=== PATIENT | female | born 1975 | race Hispanic/Latino ===

== ENCOUNTER → 2017-12-12 | Outpatient (CLI) | payer OTHER ==
[~2017-12-12] MED LIST: CETI1TAB PO; DIPH50CA35 PO; GUAIFDM PO; LABE100T PO; LEVO500T2 PO; MONT10TA24 PO; PRED20TA3 PO; TRAM50TA2 PO
[2017-12-12 16:47] LABS: EOSINOPHILS % (AUTO) 2.6 % (0.0-8.0); HEMATOCRIT 40.8 % (36-48); MEAN CORPUSCULAR HEMOGLOBIN 31.1 pg (27.0-33.0); MEAN CORPUSCULAR HGB CONC 34.4 g/dL (32.0-36.0); MEAN CORPUSCULAR VOLUME 90.5 fL (79-99); MONOCYTES % (AUTO) 8.2 % (3.0-13.0); NEUTROPHILS % (AUTO) 67.2 % (40.0-77.0); PLATELET COUNT (AUTO) 315 K/uL (130-400); RED BLOOD CELL COUNT(AUTO) 4.51 MIL/uL (4.00-5.50); RED CELL DISTRIBUTION WIDTH 12.9 % (11.0-15.5); WHITE BLOOD COUNT (AUTO) 7.3 K/uL (4.8-10.8)
[2017-12-12 16:59] LABS: ALBUMIN 3.6 g/dL (3.5-5.0); BILIRUBIN,TOTAL 0.3 mg/dL (0.2-1.0); CREATININE 1.4 mg/dL (0.5-1.5); TOTAL PROTEIN, SERUM 7.1 g/dL (6.0-8.3)
== END ==
LOC: LAB 15:54
PROVIDERS: ATTEND Internal Medicine Gastroenterology
DX: M25.512 Pain in left shoulder (principal); R07.9 Chest pain, unspecified; M25.552 Pain in left hip; R10.2 Pelvic and perineal pain
CPT/HCPCS: 36415; 80053; 82150; 83690; 85025

== ENCOUNTER → 2017-12-21 | Outpatient (CLI) | payer OTHER ==
[~2017-12-21] MED LIST changes: +IOPAMIDOL-370 75 ML VIAL IV ONE; -LABE100T PO; +LABE100T5 PO
== END | disposition home or self-care (01) ==
LOC: RAH 10:49
PROVIDERS: ATTEND Internal Medicine Gastroenterology
DX: K80.20 Calculus of gallbladder without cholecystitis without obstruction (principal); K85.10 Biliary acute pancreatitis without necrosis or infection; K86.2 Cyst of pancreas
CPT/HCPCS: 74178; Q9967

== ENCOUNTER 2018-01-30 07:36 | Observation (INO) | payer OTHER ==
[~2018-01-30] VITALS: Ht 162.6 cm; Wt 87.4 kg
[2018-01-30] VITALS (12 sets, daily range): BP systolic 112–146; BP diastolic 68–88
[~2018-01-30 07:36] MED LIST changes: -DIPH50CA35 PO; -IOPAMIDOL-370 75 ML VIAL IV ONE; -LABE100T5 PO; -LEVO500T2 PO; -MONT10TA24 PO; -PRED20TA3 PO; +SODIUM CHLORIDE 0.9% 1000ML 1,000 ML IV ONE; -TRAM50TA2 PO
[2018-01-30] MEDS ORDERED: LABE100T5 PO (08:17)
[2018-01-30] MEDS ORDERED: MONT10TA24 PO (08:17)
[2018-01-30] MEDS ORDERED: PROPOFOL 10 MG/ML 20ML VIAL IV ONE ×4 (12:09→12:37)
[2018-01-30] MEDS ORDERED: MIDAZOLAM HCL 1 MG/ML 2ML VIAL ONE (12:09)
[2018-01-30] MEDS ORDERED: FENTANYL CITRATE PF 50 MCG/1 ML 2ML VIAL ONE (12:09)
[2018-01-30] MEDS ORDERED: ZOSYN 3.375GM+NS 50ML 50 ML IV ONE ×2 (12:40→22:13)
[2018-01-30] MEDS ORDERED: LACTULOSE 20 GM/30 ML UDCUP PO PRN (13:15)
[2018-01-30] MEDS ORDERED: ACETAMINOPHEN 325 MG TAB PO PRN (13:15)
[2018-01-30] MEDS ORDERED: POTASSIUM CHLORIDE 10% ELIXIR 20 MEQ/15 ML UDCUP PO PRN (13:15)
[2018-01-30] MEDS ORDERED: MORPHINE SULFATE 2 MG/ML 1ML SYG IV PRN (13:15)
[2018-01-30] MEDS ORDERED: GUAIFENESIN-DM 200/20 MG 10 ML PO PRN (13:15)
[2018-01-30] MEDS ORDERED: ACETAMINOPHEN-CODEINE 300/30MG TAB PO PRN (13:15)
[2018-01-30] MEDS ORDERED: MAG HYDROX/AL HYDROX/SIMETH ES 30 ML SUSP UDCUP PO PRN (13:15)
[2018-01-30] MEDS ORDERED: POTASSIUM CHLORIDE 20 MEQ ERTAB PO PRN (13:15)
[2018-01-30] MEDS ORDERED: HYDRALAZINE HCL 20 MG/ML VIAL IV PRN (13:15)
[2018-01-30] MEDS ORDERED: NITROGLYCERIN 0.4 MG SL TAB SL PRN (13:15)
[2018-01-30] MEDS: SODIUM CHLORIDE 0.9% 1000ML 1,000 ML IV SCH (15:30)
[2018-01-30] MEDS ORDERED: ONDANSETRON HCL MDV 20ML 2 MG/ML VIAL IVP ONE (20:00)
[2018-01-30] MEDS: FAMOTIDINE/PF 20 MG/2 ML VIAL IV SCH (21:54)
[2018-01-30] MEDS ORDERED: HYDROMORPHONE 1 MG/1 ML AMP IVP PRN (22:15)
[2018-01-30] MEDS: ZOSYN 3.375GM+NS 50ML 50 ML IV SCH (22:33)
[2018-01-30] MEDS ORDERED: ACETAMINOPHEN 650 MG SUPPOSITORY RC ONE (22:41)
[2018-01-30] MEDS ORDERED: ACETAMINOPHEN 650 MG SUPPOSITORY RC PRN (22:45)
[2018-01-31] MEDS ORDERED: METRONIDAZOLE 500MG/100ML BAG 100 ML IV SCH (02:00)
[2018-01-31] MEDS: SODIUM CHLORIDE 0.9% 1000ML 1,000 ML IV SCH ×2 (02:41→11:30)
[2018-01-31] MEDS: METRONIDAZOLE 500MG/100ML BAG 100 ML IV SCH ×4 (02:41→21:27)
[2018-01-31 03:38] VITALS: BP 117/56
[2018-01-31 03:58] LABS: HEMATOCRIT 41.2 % (36-48); MEAN CORPUSCULAR HEMOGLOBIN 30.1 pg (27.0-33.0); MEAN CORPUSCULAR VOLUME 88.4 fL (79-99); PLATELET COUNT (AUTO) 325 K/uL (130-400); RED BLOOD CELL COUNT(AUTO) 4.66 MIL/uL (4.00-5.50); RED CELL DISTRIBUTION WIDTH 13.8 % (11.0-15.5); WHITE BLOOD COUNT (AUTO) 23.7 K/uL (4.8-10.8)
[2018-01-31 04:06] LABS: ALBUMIN 3.4 g/dL (3.5-5.0); BILIRUBIN,TOTAL 0.9 mg/dL (0.2-1.0); CREATININE 1.3 mg/dL (0.5-1.5); POTASSIUM 3.9 mmol/L (3.5-5.1)
[2018-01-31] MEDS: ZOSYN 3.375GM+NS 50ML 50 ML IV SCH ×3 (07:15→22:38)
[2018-01-31] MEDS: FAMOTIDINE/PF 20 MG/2 ML VIAL IV SCH ×2 (07:52→20:32)
[2018-01-31] MEDS: ACETAMINOPHEN 325 MG TAB PO PRN (07:52)
[2018-01-31 08:00] VITALS: BP 131/81
[2018-01-31] MEDS: SIMETHICONE 80 MG TAB.CHEW PO SCH ×4 (09:00→20:32)
[2018-01-31 11:29] VITALS: BP 135/78
[2018-01-31] MEDS: ONDANSETRON HCL MDV 20ML 2 MG/ML VIAL IV PRN (16:18)
[2018-01-31 16:33] VITALS: BP 136/85
[2018-01-31 19:40] VITALS: BP 127/75
[2018-01-31] MEDS: MONTELUKAST SODIUM 10 MG TAB PO SCH (20:32)
[2018-01-31] MEDS: LABETALOL HCL 100 MG TABLET PO SCH (20:33)
[2018-02-01] VITALS (7 sets, daily range): BP systolic 106–142; BP diastolic 62–79
[2018-02-01] MEDS: ACETAMINOPHEN 325 MG TAB PO PRN (00:52)
[2018-02-01 04:26] LABS: HEMATOCRIT 36.4 % (36-48); MEAN CORPUSCULAR HGB CONC 36.4 g/dL (32.0-36.0); PLATELET COUNT (AUTO) 274 K/uL (130-400); RED BLOOD CELL COUNT(AUTO) 4.14 MIL/uL (4.00-5.50); RED CELL DISTRIBUTION WIDTH 13.6 % (11.0-15.5); WHITE BLOOD COUNT (AUTO) 9.4 K/uL (4.8-10.8)
[2018-02-01 04:39] LABS: CREATININE 1.2 mg/dL (0.5-1.5); POTASSIUM 3.2 mmol/L (3.5-5.1)
[2018-02-01] MEDS: METRONIDAZOLE 500MG/100ML BAG 100 ML IV SCH ×3 (05:25→20:34)
[2018-02-01] MEDS: ZOSYN 3.375GM+NS 50ML 50 ML IV SCH ×3 (05:54→23:02)
[2018-02-01] MEDS ORDERED: TRAM50TA2 PO (09:09)
[2018-02-01] MEDS: SIMETHICONE 80 MG TAB.CHEW PO SCH ×4 (09:43→23:01)
[2018-02-01] MEDS: FAMOTIDINE/PF 20 MG/2 ML VIAL IV SCH ×2 (09:43→20:36)
[2018-02-01] MEDS: SODIUM CHLORIDE 0.9% 1000ML 1,000 ML IV SCH (15:00)
[2018-02-01] MEDS: ONDANSETRON HCL MDV 20ML 2 MG/ML VIAL IV PRN (20:36)
[2018-02-01] MEDS: LABETALOL HCL 100 MG TABLET PO SCH (23:00)
[2018-02-01] MEDS: MONTELUKAST SODIUM 10 MG TAB PO SCH (23:01)
[2018-02-02 00:05] VITALS: BP 110/71
[2018-02-02] MEDS: SODIUM CHLORIDE 0.9% 1000ML 1,000 ML IV SCH ×2 (02:20→15:47)
[2018-02-02] MEDS: POTASSIUM CHLORIDE 20MEQ/100ML 100 ML IV PRN ×2 (02:22→13:14)
[2018-02-02] MEDS: LIDOCAINE HCL-MPF 1% 2ML VIAL IVP PRN ×2 (02:22→13:15)
[2018-02-02 04:05] VITALS: BP 117/78
[2018-02-02 05:21] LABS: HEMATOCRIT 34.6 % (36-48); MEAN CORPUSCULAR HEMOGLOBIN 30.5 pg (27.0-33.0); MEAN CORPUSCULAR HGB CONC 34.4 g/dL (32.0-36.0); MEAN CORPUSCULAR VOLUME 88.6 fL (79-99); PLATELET COUNT (AUTO) 292 K/uL (130-400); RED BLOOD CELL COUNT(AUTO) 3.91 MIL/uL (4.00-5.50); RED CELL DISTRIBUTION WIDTH 13.6 % (11.0-15.5); WHITE BLOOD COUNT (AUTO) 6.2 K/uL (4.8-10.8)
[2018-02-02] MEDS: METRONIDAZOLE 500MG/100ML BAG 100 ML IV SCH ×2 (07:56→15:47)
[2018-02-02 08:00] VITALS: BP 120/76
[2018-02-02] MEDS: SIMETHICONE 80 MG TAB.CHEW PO SCH ×2 (09:04→13:14)
[2018-02-02] MEDS: FAMOTIDINE/PF 20 MG/2 ML VIAL IV SCH (09:04)
[2018-02-02] MEDS: ZOSYN 3.375GM+NS 50ML 50 ML IV SCH (09:05)
[2018-02-02 11:36] VITALS: BP 131/78
[2018-02-02 15:54] VITALS: BP 127/86
== END 2018-02-02 17:55 | disposition home or self-care (01) ==
LOC: ENDO 07:36 → DAH 07:36 → DAHIP 07:37 → ENDO 07:37 → 3CH 14:19
PROVIDERS: ADMIT Internal Medicine; ATTEND Internal Medicine
DX: K86.3 Pseudocyst of pancreas (principal); I10 Essential (primary) hypertension; K80.10 Calculus of gallbladder with chronic cholecystitis without obstruction; Z79.899 Other long term (current) drug therapy
CPT/HCPCS: 36415 ×4; 43240; 74176; 80048; 80053; 84703; 85027 ×3; 87040 ×2; 96365; 96366 ×4; 96367; 96368; 96375 ×2; 96376 ×3; A4510; A4606; C1877; G0378 ×82; J1170; J2250; J2543 ×9; J2704 ×4; J3010; J3480 ×2; J3490 ×16; J7030 ×2; 43231

== ENCOUNTER → 2018-02-11 | Outpatient (CLI) | payer OTHER ==
[~2018-02-11] MED LIST changes: -CETI1TAB PO; +DIPH50CA35 PO; -GUAIFDM PO; +IOPAMIDOL-370 75 ML VIAL IV ONE; +LABE100T5 PO; +LEVO500T2 PO; +MONT10TA24 PO; +PRED20TA3 PO; -SODIUM CHLORIDE 0.9% 1000ML 1,000 ML IV ONE; +TRAM50TA2 PO
== END | disposition home or self-care (01) ==
LOC: RAH 08:40
PROVIDERS: ATTEND Internal Medicine
DX: K80.20 Calculus of gallbladder without cholecystitis without obstruction (principal); K86.2 Cyst of pancreas
CPT/HCPCS: 74178; Q9967

== ENCOUNTER 2018-02-12 21:34 | Emergency (ER) | payer OTHER ==
[~2018-02-12 21:34] MED LIST changes: -DIPH50CA35 PO; -IOPAMIDOL-370 75 ML VIAL IV ONE; -LEVO500T2 PO; -PRED20TA3 PO
[2018-02-12] MEDS ORDERED: FAMOTIDINE 20MG TAB 20 MG TAB ONE (22:52)
[2018-02-12] MEDS ORDERED: DiphenhydrAMINE HCL 50 MG/ML VIAL ONE (22:53)
[2018-02-12] MEDS ORDERED: PREDNISONE 20 MG TABLET ONE (22:53)
== END 2018-02-12 23:31 | disposition home or self-care (01) ==
LOC: EDH 21:34
DX: T78.49XA Other allergy, initial encounter (principal); X58.XXXA Exposure to other specified factors, initial encounter
CPT/HCPCS: 96372; 99283; J1200

== ENCOUNTER 2018-02-20 11:57 | Inpatient (IN) | payer OTHER ==
[~2018-02-20] VITALS: Ht 162.6 cm; Wt 78.1 kg
[~2018-02-20 11:57] MED LIST changes: -DIPH50CA35 PO; -IOPAMIDOL-370 75 ML VIAL IV ONE; -LEVO500T2 PO; -PRED20TA3 PO
[2018-02-20 12:46] LABS: BASOPHILS % (AUTO) 0.2 % (0.0-5.0); HEMATOCRIT 33.6 % (36-48); LYMPHOCYTES % (AUTO) 6.4 % (21.0-51.0); MEAN CORPUSCULAR HEMOGLOBIN 29.4 pg (27.0-33.0); MEAN CORPUSCULAR HGB CONC 32.9 g/dL (32.0-36.0); MEAN CORPUSCULAR VOLUME 89.2 fL (79-99); MONOCYTES % (AUTO) 4.2 % (3.0-13.0); NEUTROPHILS % (AUTO) 89.2 % (40.0-77.0); NUCLEATED RED BLOOD CELLS 0.1 % (0.0-0.19); PLATELET COUNT (AUTO) 569 K/uL (130-400); RED BLOOD CELL COUNT(AUTO) 3.77 MIL/uL (4.00-5.50); WHITE BLOOD COUNT (AUTO) 7.2 K/uL (4.8-10.8)
[2018-02-20 12:59] LABS: CREATININE 1.1 mg/dL (0.5-1.5); POTASSIUM 4.1 mmol/L (3.5-5.1)
[2018-02-20 13:04] LABS: ALBUMIN 2.3 g/dL (3.5-5.0); BILIRUBIN,TOTAL 0.5 mg/dL (0.2-1.0); TOTAL PROTEIN, SERUM 7.3 g/dL (6.0-8.3)
[2018-02-20] MEDS ORDERED: SODIUM CHLORIDE 0.9% 1000ML 1,000 ML IV ONE (14:33)
[2018-02-20 18:19] VITALS: BP 113/64
[2018-02-20] MEDS ORDERED: CLONIDINE HCL 0.1 MG TABLET PO PRN (18:30)
[2018-02-20] MEDS ORDERED: ONDANSETRON HCL 4 MG/2 ML VIAL IVP PRN (18:30)
[2018-02-20] MEDS ORDERED: ACETAMINOPHEN 325 MG TAB PO PRN ×2 (18:30)
[2018-02-20] MEDS: SODIUM CHLORIDE 0.9% 1000ML 1,000 ML IV SCH (18:38)
[2018-02-20] MEDS ORDERED: PRED20TA3 PO (18:51)
[2018-02-20] MEDS ORDERED: LEVO500T2 PO (18:51)
[2018-02-20] MEDS ORDERED: DIPH50CA35 PO (18:51)
[2018-02-20 19:00] VITALS: BP 105/65
[2018-02-20] MEDS ORDERED: DiphenhydrAMINE HCL 50 MG/ML VIAL IV PRN (21:45)
[2018-02-20 23:39] VITALS: BP 113/67
[2018-02-21] MEDS: SODIUM CHLORIDE 0.9% 1000ML 1,000 ML IV SCH ×3 (02:53→23:04)
[2018-02-21 04:00] VITALS: BP 96/64
[2018-02-21 05:13] LABS: HEMATOCRIT 29.5 % (36-48); MEAN CORPUSCULAR HEMOGLOBIN 30.3 pg (27.0-33.0); MEAN CORPUSCULAR HGB CONC 34.4 g/dL (32.0-36.0); MEAN CORPUSCULAR VOLUME 87.9 fL (79-99); PLATELET COUNT (AUTO) 478 K/uL (130-400); RED BLOOD CELL COUNT(AUTO) 3.36 MIL/uL (4.00-5.50); RED CELL DISTRIBUTION WIDTH 14.5 % (11.0-15.5); WHITE BLOOD COUNT (AUTO) 8.8 K/uL (4.8-10.8)
[2018-02-21 05:21] LABS: CREATININE 0.8 mg/dL (0.5-1.5)
[2018-02-21 05:35] LABS: INR 1.04 (0.85-1.15); PROTHROMBIN TIME 10.9 SEC (9.6-11.6)
[2018-02-21 07:55] VITALS: BP 99/58
[2018-02-21] MEDS ORDERED: PANTOPRAZOLE SODIUM 40 MG TABLET.DR PO SCH (09:00)
[2018-02-21] MEDS ORDERED: GUAIFENESIN-DM 200/20 MG 10 ML PO PRN (10:30)
[2018-02-21] MEDS ORDERED: HYDRALAZINE HCL 20 MG/ML VIAL IV PRN (10:30)
[2018-02-21] MEDS ORDERED: LACTULOSE 20 GM/30 ML UDCUP PO PRN (10:30)
[2018-02-21] MEDS ORDERED: ONDANSETRON HCL 4 MG/2 ML VIAL IV PRN (10:30)
[2018-02-21] MEDS ORDERED: MAG HYDROX/AL HYDROX/SIMETH ES 30 ML SUSP UDCUP PO PRN (10:30)
[2018-02-21] MEDS ORDERED: NITROGLYCERIN 0.4 MG SL TAB SL PRN (10:30)
[2018-02-21] MEDS ORDERED: ACETAMINOPHEN 325 MG TAB PO PRN ×2 (10:30)
[2018-02-21] MEDS: LEVOFLOXACIN 750 MG/D5W 150 ML 150 ML IV SCH (11:47)
[2018-02-21 12:00] VITALS: BP 103/68
[2018-02-21 16:00] VITALS: BP 111/63
[2018-02-21 19:37] VITALS: BP 120/63
[2018-02-21] MEDS: FAMOTIDINE/PF 20 MG/2 ML VIAL IV SCH (21:43)
[2018-02-21 23:04] VITALS: BP 107/71
[2018-02-22] MEDS: MEPERIDINE-PF 25 MG/ML SYG IV PRN ×2 (03:12→18:38)
[2018-02-22 03:28] VITALS: BP 107/59
[2018-02-22 04:38] LABS: HEMATOCRIT 28.8 % (36-48); MEAN CORPUSCULAR HEMOGLOBIN 31.4 pg (27.0-33.0); MEAN CORPUSCULAR HGB CONC 35.9 g/dL (32.0-36.0); MEAN CORPUSCULAR VOLUME 87.5 fL (79-99); PLATELET COUNT (AUTO) 446 K/uL (130-400); RED BLOOD CELL COUNT(AUTO) 3.29 MIL/uL (4.00-5.50); RED CELL DISTRIBUTION WIDTH 14.7 % (11.0-15.5); WHITE BLOOD COUNT (AUTO) 12.3 K/uL (4.8-10.8)
[2018-02-22 05:13] LABS: ALBUMIN 1.7 g/dL (3.5-5.0); BILIRUBIN,TOTAL 0.2 mg/dL (0.2-1.0); CREATININE 0.9 mg/dL (0.5-1.5); POTASSIUM 3.6 mmol/L (3.5-5.1); TOTAL PROTEIN, SERUM 5.4 g/dL (6.0-8.3)
[2018-02-22 06:02] LABS: BAND NEUTROPHILS % (MANUAL) 26 % (0-2); LYMPHOCYTES % (MANUAL) 10 % (22-44); MAN.DIFF COMMENT-IMPRESSION MANUAL DIFFERENTIAL; METAMYELOCYTES % 3 % (0-0); MONOCYTES % (MANUAL) 18 % (2-9); REACTIVE LYMPHOCYTES 2 % (0-0); SEGMENTED NEUTROPHILS % 41 % (40-70)
[2018-02-22 06:03] LABS: PLATELET MORPHOLOGY COMMENT SLIGHT INCREASED
[2018-02-22] MEDS: SODIUM CHLORIDE 0.9% 1000ML 1,000 ML IV SCH ×2 (06:30→08:25)
[2018-02-22 07:00] VITALS: BP 100/65
[2018-02-22] MEDS: LEVOFLOXACIN 750 MG/D5W 150 ML 150 ML IV SCH (08:25)
[2018-02-22] MEDS: FAMOTIDINE/PF 20 MG/2 ML VIAL IV SCH ×2 (08:25→20:21)
[2018-02-22] MEDS ORDERED: POTASSIUM CHLORIDE 20MEQ/100ML 100 ML IV PRN (10:00)
[2018-02-22] MEDS ORDERED: POTASSIUM CHLORIDE 10% ELIXIR 20 MEQ/15 ML UDCUP PO PRN (10:00)
[2018-02-22] MEDS ORDERED: LIDOCAINE HCL-MPF 1% 2ML VIAL IVP PRN (10:00)
[2018-02-22 11:00] VITALS: BP 109/61
[2018-02-22 16:00] VITALS: BP 101/57
[2018-02-22] MEDS ORDERED: SODIUM CHLORIDE 0.9% 250 ML IV ONE (16:03)
[2018-02-22 20:03] VITALS: BP 108/68
[2018-02-22] MEDS ORDERED: KETOROLAC TROMETHAMINE 30MG/ML ONE (20:12)
[2018-02-22] MEDS ORDERED: KETOROLAC TROMETHAMINE 30MG/ML IM PRN (20:15)
[2018-02-22] MEDS ORDERED: LABETALOL HCL 100 MG TABLET PO SCH (21:00)
[2018-02-23 00:04] VITALS: BP 95/56
[2018-02-23 03:00] VITALS: BP 101/62
[2018-02-23 08:00] VITALS: BP 95/58
[2018-02-23] MEDS: FAMOTIDINE/PF 20 MG/2 ML VIAL IV SCH (08:39)
[2018-02-23] MEDS: POTASSIUM CHLORIDE 20 MEQ ERTAB PO PRN ×2 (10:16→13:23)
[2018-02-23] MEDS: LEVOFLOXACIN 750 MG/D5W 150 ML 150 ML IV SCH (11:38)
== END 2018-02-23 18:15 | disposition home or self-care (01) | DRG 282 ==
LOC: EDH 11:57 → EDHIP 13:46 → 4BH 17:52 → 3BH 02-23 02:52
PROVIDERS: ADMIT Family Medicine; ATTEND Family Medicine
DX: K85.90 Acute pancreatitis without necrosis or infection, unspecified (principal); K74.60 Unspecified cirrhosis of liver; E87.1 Hypo-osmolality and hyponatremia; D64.9 Anemia, unspecified; K80.20 Calculus of gallbladder without cholecystitis without obstruction
CPT/HCPCS: 36415; 74178; 80048; 80053; 82150; 83605; 83690; 85025; 85027; 85610; 87040; J1885; J1956; J2175; J2405; J3480; J3490; J7030; Q9967

== ENCOUNTER → 2018-02-20 | Outpatient (CLI) | payer OTHER ==
[~2018-02-20] MED LIST changes: +DIPH50CA35 PO; +IOPAMIDOL-370 75 ML VIAL IV ONE; +LEVO500T2 PO; +PRED20TA3 PO
== END | disposition home or self-care (01) ==
LOC: RAH 10:05
PROVIDERS: ATTEND Internal Medicine
DX: K80.20 Calculus of gallbladder without cholecystitis without obstruction (principal); I70.90 Unspecified atherosclerosis; K86.2 Cyst of pancreas
CPT/HCPCS: 74178; Q9967

== ENCOUNTER 2018-05-26 22:03 | Inpatient (IN) | payer OTHER ==
[~2018-05-26] VITALS: Ht 167.6 cm; Wt 78.3 kg
[~2018-05-26 22:03] MED LIST changes: +DUCOSATE; -LABE100T5 PO; -MONT10TA24 PO; -TRAM50TA2 PO; +TYLENOL
[2018-05-26] MEDS ORDERED: ACETAMINOPHEN EXTRA STRENGTH 500 MG TABLET ONE (22:15)
[2018-05-26] MEDS ORDERED: SODIUM CHLORIDE 0.9% 1000ML 2,000 ML IV ONE (22:15)
[2018-05-26] MEDS ORDERED: IBUPROFEN 400 MG TABLET ONE (22:17)
[2018-05-26] MEDS ORDERED: IBUPROFEN 200 MG TAB ONE (22:18)
[2018-05-26] MEDS ORDERED: ONDANSETRON HCL 4 MG/2 ML VIAL ONE (22:22)
[2018-05-26 22:39] LABS: CARBON DIOXIDE 27 mmol/L (21-32); CHLORIDE 100 mmol/L (101-111); CREATININE 1.1 mg/dL (0.5-1.5); GLOMERULAR FILTR. RATE CALC 58 mL/min (>60); GLUCOSE,RANDOM 122 mg/dL (70-105); POTASSIUM 3.3 mmol/L (3.5-5.1); SODIUM SERUM 136 mmol/L (136-145); UREA NITROGEN, BLOOD 11 mg/dL (7-18)
[2018-05-26 22:42] LABS: BASOPHILS % (AUTO) 0.4 % (0.0-5.0); EOSINOPHILS % (AUTO) 0.5 % (0.0-8.0); HEMATOCRIT 30.5 % (36-48); LYMPHOCYTES % (AUTO) 10.7 % (21.0-51.0); MEAN CORPUSCULAR HEMOGLOBIN 27.5 pg (27.0-33.0); MEAN CORPUSCULAR VOLUME 83.3 fL (79-99); MONOCYTES % (AUTO) 14.4 % (3.0-13.0); PLATELET COUNT (AUTO) 583 K/uL (130-400); RED BLOOD CELL COUNT(AUTO) 3.66 MIL/uL (4.00-5.50); RED CELL DISTRIBUTION WIDTH 21.5 % (11.0-15.5); WHITE BLOOD COUNT (AUTO) 13.2 K/uL (4.8-10.8)
[2018-05-26 22:43] LABS: APPEARANCE,URINE Cloudy (CLEAR); BILIRUBIN,URINE Negative (NEGATIVE); COLOR,URINE Dark Yellow (YELLOW); GLUCOSE, URINE (UA) Negative (NEGATIVE); KETONES,URINE Trace mg/dL (NEGATIVE); LEUKOCYTE ESTERASE ,URINE Trace (NEGATIVE); NITRATE,URINE Negative (NEGATIVE); OCCULT BLOOD,URINE Negative (NEGATIVE); PH,URINE 5.5 (5.0-8.0); PROTEIN,URINE POS 2+ (NEGATIVE)
[2018-05-26 22:52] LABS: BACTERIA,URINE Few /HPF (None Seen); RBC,URINE None Seen /HPF (0-1); SQUAMOUS EPITHELIAL CELL,UR Moderate /HPF (0-2)
[2018-05-26 22:53] LABS: ALANINE AMINOTRANSFERASE 31 U/L (12-78); ALBUMIN 2.4 g/dL (3.5-5.0); ASPARTATE AMINOTRANSFERASE 40 U/L (10-37); BILIRUBIN,TOTAL 0.2 mg/dL (0.2-1.0); CREATINE KINASE MB < 0.5 ng/mL (0.5-3.6); CREATINE KINASE, TOTAL 16 U/L (21-232); MYOGLOBIN 27 ng/mL (10-92); TOTAL PROTEIN, SERUM 7.5 g/dL (6.0-8.3); TROPONIN I < 0.04 ng/mL (0.00-0.06)
[2018-05-26 22:57] LABS: AMYLASE 54 U/L (25-115); LIPASE 176 U/L (114-286)
[2018-05-26 23:24] LABS: INR 0.99 (0.85-1.15); PROTHROMBIN TIME 10.4 SEC (9.6-11.6)
[2018-05-26] MEDS ORDERED: SODIUM CHLORIDE 0.9% 100 ML IV ONE (23:42)
[2018-05-26] MEDS ORDERED: ZOSYN 3.375GM+NS 50ML 50 ML IV ONE (23:42)
[2018-05-27] VITALS (7 sets, daily range): BP systolic 91–103; BP diastolic 49–65
[2018-05-27] MEDS ORDERED: ONDANSETRON HCL 4 MG/2 ML VIAL IVP PRN (00:30)
[2018-05-27] MEDS ORDERED: MORPHINE SULFATE 4 MG/1ML SYG IVP PRN (00:30)
[2018-05-27] MEDS: LACTATED RINGERS 1000ML 1,000 ML IV SCH ×4 (02:10→22:54)
[2018-05-27 04:36] LABS: BASOPHILS % (AUTO) 0.5 % (0.0-5.0); EOSINOPHILS % (AUTO) 1.1 % (0.0-8.0); HEMATOCRIT 25.6 % (36-48); LYMPHOCYTES % (AUTO) 19.4 % (21.0-51.0); MEAN CORPUSCULAR HEMOGLOBIN 27.8 pg (27.0-33.0); MEAN CORPUSCULAR HGB CONC 32.8 g/dL (32.0-36.0); MEAN CORPUSCULAR VOLUME 84.6 fL (79-99); MONOCYTES % (AUTO) 19.5 % (3.0-13.0); NEUTROPHILS % (AUTO) 59.5 % (40.0-77.0); PLATELET COUNT (AUTO) 394 K/uL (130-400); RED BLOOD CELL COUNT(AUTO) 3.03 MIL/uL (4.00-5.50); RED CELL DISTRIBUTION WIDTH 21.5 % (11.0-15.5); WHITE BLOOD COUNT (AUTO) 9.5 K/uL (4.8-10.8)
[2018-05-27 04:54] LABS: ALBUMIN 1.8 g/dL (3.5-5.0); BILIRUBIN,TOTAL 0.2 mg/dL (0.2-1.0); CREATININE 1.1 mg/dL (0.5-1.5); CRP QUANTITATIVE 285.2 mg/L (0.00-9.0); POTASSIUM 3.5 mmol/L (3.5-5.1); TOTAL PROTEIN, SERUM 5.8 g/dL (6.0-8.3)
[2018-05-27] MEDS ORDERED: LIDOCAINE HCL-MPF 1% 2ML VIAL IVP PRN ×2 (07:30→08:45)
[2018-05-27] MEDS ORDERED: POTASSIUM CHLORIDE 20MEQ/100ML 100 ML IV PRN ×2 (07:30→08:45)
[2018-05-27] MEDS: PREDNISONE 20 MG TABLET PO SCH ×3 (08:00→20:19)
[2018-05-27] MEDS ORDERED: PREDNISONE 20 MG TABLET ONE (08:17)
[2018-05-27] MEDS ORDERED: POTASSIUM CHLORIDE 10% ELIXIR 20 MEQ/15 ML UDCUP PO PRN (08:45)
[2018-05-27] MEDS: ZOSYN 3.375GM+NS 50ML 50 ML IV SCH ×2 (13:36→20:20)
[2018-05-27] MEDS: POTASSIUM CHLORIDE 20 MEQ ERTAB PO PRN ×2 (13:46→15:40)
[2018-05-27] MEDS ORDERED: PREDNISONE 20 MG TABLET PO SCH ×2 (14:00→20:00)
[2018-05-27] MEDS ORDERED: DIATR MEGLU/DIATRIZOATE SODIUM 30 ML BOTTLE ONE (18:47)
[2018-05-27] MEDS ORDERED: DiphenhydrAMINE HCL 50 MG/ML VIAL IV SCH (20:00)
[2018-05-27] MEDS ORDERED: IOHEXOL-350 75 ML VIAL IV ONE (20:18)
[2018-05-28 04:00] VITALS: BP 94/61
[2018-05-28] MEDS: ZOSYN 3.375GM+NS 50ML 50 ML IV SCH ×3 (05:48→12:04)
[2018-05-28] MEDS: LACTATED RINGERS 1000ML 1,000 ML IV SCH ×2 (05:51→16:32)
[2018-05-28 08:01] VITALS: BP 95/60
[2018-05-28 11:48] VITALS: BP_SYST 133; BP_SYST 90; BP_DIAS 47; BP_DIAS 56
[2018-05-28 11:53] VITALS: BP 89/59
[2018-05-28 14:46] VITALS: BP 98/59
[2018-05-28 19:49] VITALS: BP 101/57
[2018-05-29] VITALS (14 sets, daily range): BP systolic 89–113; BP diastolic 45–73
[2018-05-29] MEDS: LACTATED RINGERS 1000ML 1,000 ML IV SCH ×3 (03:06→16:30)
[2018-05-29 03:24] LABS: BASOPHILS % (AUTO) 0.4 % (0.0-5.0); EOSINOPHILS % (AUTO) 0.4 % (0.0-8.0); HEMATOCRIT 28.7 % (36-48); LYMPHOCYTES % (AUTO) 12.7 % (21.0-51.0); MEAN CORPUSCULAR HEMOGLOBIN 27.1 pg (27.0-33.0); MEAN CORPUSCULAR HGB CONC 32.4 g/dL (32.0-36.0); MEAN CORPUSCULAR VOLUME 83.7 fL (79-99); NEUTROPHILS % (AUTO) 78.5 % (40.0-77.0); PLATELET COUNT (AUTO) 491 K/uL (130-400); RED BLOOD CELL COUNT(AUTO) 3.44 MIL/uL (4.00-5.50); RED CELL DISTRIBUTION WIDTH 21.1 % (11.0-15.5); WHITE BLOOD COUNT (AUTO) 13.1 K/uL (4.8-10.8)
[2018-05-29 03:38] LABS: ALANINE AMINOTRANSFERASE 13 U/L (12-78); ALBUMIN 1.8 g/dL (3.5-5.0); AMYLASE 52 U/L (25-115); ASPARTATE AMINOTRANSFERASE 11 U/L (10-37); CARBON DIOXIDE 29 mmol/L (21-32); CHLORIDE 107 mmol/L (101-111); GLOMERULAR FILTR. RATE CALC 65 mL/min (>60); GLUCOSE,RANDOM 95 mg/dL (70-105); LIPASE 181 U/L (114-286); POTASSIUM 3.6 mmol/L (3.5-5.1); SODIUM SERUM 143 mmol/L (136-145); TOTAL PROTEIN, SERUM 5.5 g/dL (6.0-8.3); UREA NITROGEN, BLOOD 16 mg/dL (7-18)
[2018-05-29 03:46] LABS: BILIRUBIN,TOTAL < 0.1 mg/dL (0.2-1.0)
[2018-05-29 05:54] LABS: INR 1.01 (0.85-1.15); PARTIAL THROMBOPLASTIN TIME 26.3 SEC (26.3-35.5); PROTHROMBIN TIME 10.6 SEC (9.6-11.6)
[2018-05-29] MEDS: ZOSYN 3.375GM+NS 50ML 50 ML IV SCH ×3 (06:33→22:00)
[2018-05-29] MEDS ORDERED: SODIUM CHLORIDE 0.9% 500ML 500 ML IV SCH (08:45)
[2018-05-29] MEDS ORDERED: FENTANYL CITRATE PF 50 MCG/1 ML 2ML VIAL ONE (12:49)
[2018-05-29] MEDS ORDERED: MIDAZOLAM HCL 1 MG/ML 2ML VIAL ONE (12:50)
[2018-05-29 14:35] LABS: TOTAL BILIRUBIN, BODY FLUID 0.2 mg/dL
[2018-05-30 00:06] VITALS: BP 96/62
[2018-05-30 04:00] VITALS: BP 96/54
[2018-05-30 04:08] LABS: EOSINOPHILS % (AUTO) 0.8 % (0.0-8.0); HEMATOCRIT 27.6 % (36-48); LYMPHOCYTES % (AUTO) 27.2 % (21.0-51.0); MEAN CORPUSCULAR HEMOGLOBIN 27.7 pg (27.0-33.0); MEAN CORPUSCULAR HGB CONC 32.9 g/dL (32.0-36.0); MEAN CORPUSCULAR VOLUME 84.3 fL (79-99); MONOCYTES % (AUTO) 8.5 % (3.0-13.0); NEUTROPHILS % (AUTO) 62.5 % (40.0-77.0); NUCLEATED RED BLOOD CELLS 0.3 % (0.0-0.19); PLATELET COUNT (AUTO) 479 K/uL (130-400); RED BLOOD CELL COUNT(AUTO) 3.28 MIL/uL (4.00-5.50); RED CELL DISTRIBUTION WIDTH 21.9 % (11.0-15.5); WHITE BLOOD COUNT (AUTO) 7.9 K/uL (4.8-10.8)
[2018-05-30 04:21] LABS: ALBUMIN 1.9 g/dL (3.5-5.0); BILIRUBIN,TOTAL 0.2 mg/dL (0.2-1.0); CREATININE 1.1 mg/dL (0.5-1.5); POTASSIUM 3.5 mmol/L (3.5-5.1); TOTAL PROTEIN, SERUM 5.4 g/dL (6.0-8.3)
[2018-05-30] MEDS: LACTATED RINGERS 1000ML 1,000 ML IV SCH ×2 (05:46→17:13)
[2018-05-30] MEDS: ZOSYN 3.375GM+NS 50ML 50 ML IV SCH ×3 (05:46→22:35)
[2018-05-30] MEDS: POTASSIUM CHLORIDE 20 MEQ ERTAB PO PRN ×2 (05:53→11:41)
[2018-05-30 08:00] VITALS: BP 95/63
[2018-05-30] MEDS: SODIUM CHLORIDE 0.9% 10 ML VIAL IV SCH ×2 (09:20→22:55)
[2018-05-30 11:00] VITALS: BP 94/63
[2018-05-30 16:00] VITALS: BP 90/58
[2018-05-30 20:00] VITALS: BP 106/58
[2018-05-31] VITALS (7 sets, daily range): BP systolic 90–118; BP diastolic 54–72
[2018-05-31] MEDS: LACTATED RINGERS 1000ML 1,000 ML IV SCH ×3 (00:31→16:11)
[2018-05-31] MEDS: ZOSYN 3.375GM+NS 50ML 50 ML IV SCH ×3 (04:38→21:47)
[2018-05-31 06:27] LABS: CREATININE 1.2 mg/dL (0.5-1.5); POTASSIUM 3.7 mmol/L (3.5-5.1)
[2018-05-31] MEDS: SODIUM CHLORIDE 0.9% 10 ML VIAL IV SCH ×2 (08:57→21:47)
[2018-06-01] MEDS: LACTATED RINGERS 1000ML 1,000 ML IV SCH ×3 (02:15→17:04)
[2018-06-01 03:00] VITALS: BP 98/56
[2018-06-01] MEDS: ZOSYN 3.375GM+NS 50ML 50 ML IV SCH ×3 (04:32→21:19)
[2018-06-01 04:52] LABS: BASOPHILS % (AUTO) 0.7 % (0.0-5.0); EOSINOPHILS % (AUTO) 2.9 % (0.0-8.0); HEMATOCRIT 27.6 % (36-48); LYMPHOCYTES % (AUTO) 27.3 % (21.0-51.0); MEAN CORPUSCULAR HEMOGLOBIN 28.3 pg (27.0-33.0); MEAN CORPUSCULAR HGB CONC 33.3 g/dL (32.0-36.0); MEAN CORPUSCULAR VOLUME 85.1 fL (79-99); MONOCYTES % (AUTO) 6.4 % (3.0-13.0); NEUTROPHILS % (AUTO) 62.7 % (40.0-77.0); PLATELET COUNT (AUTO) 486 K/uL (130-400); RED BLOOD CELL COUNT(AUTO) 3.24 MIL/uL (4.00-5.50); RED CELL DISTRIBUTION WIDTH 21.5 % (11.0-15.5); WHITE BLOOD COUNT (AUTO) 8.5 K/uL (4.8-10.8)
[2018-06-01 05:03] LABS: BILIRUBIN,TOTAL 0.1 mg/dL (0.2-1.0); CREATININE 1.2 mg/dL (0.5-1.5); POTASSIUM 3.6 mmol/L (3.5-5.1); TOTAL PROTEIN, SERUM 5.7 g/dL (6.0-8.3)
[2018-06-01 08:00] VITALS: BP 100/59
[2018-06-01] MEDS: SODIUM CHLORIDE 0.9% 10 ML VIAL IV SCH ×2 (09:03→21:23)
[2018-06-01 11:31] VITALS: BP 93/62
[2018-06-01 15:34] VITALS: BP 98/69
[2018-06-01 19:00] VITALS: BP 98/51
[2018-06-01] MEDS: POTASSIUM CHLORIDE 20 MEQ ERTAB PO PRN (21:22)
[2018-06-01 23:00] VITALS: BP 114/64
[2018-06-02] MEDS: LACTATED RINGERS 1000ML 1,000 ML IV SCH ×3 (02:28→17:39)
[2018-06-02 03:00] VITALS: BP 96/57
[2018-06-02] MEDS: ZOSYN 3.375GM+NS 50ML 50 ML IV SCH ×3 (04:50→20:43)
[2018-06-02 07:48] VITALS: BP 99/58
[2018-06-02] MEDS: SODIUM CHLORIDE 0.9% 10 ML VIAL IV SCH ×2 (09:31→21:00)
[2018-06-02 12:00] VITALS: BP 101/61
[2018-06-02 15:55] VITALS: BP 106/71
[2018-06-02 20:00] VITALS: BP 106/61
[2018-06-02 23:52] VITALS: BP 104/62
[2018-06-03] MEDS: LACTATED RINGERS 1000ML 1,000 ML IV SCH ×2 (01:11→08:45)
[2018-06-03 03:51] VITALS: BP 99/64
[2018-06-03] MEDS: ZOSYN 3.375GM+NS 50ML 50 ML IV SCH ×2 (04:49→12:45)
[2018-06-03 07:00] VITALS: BP 105/69
[2018-06-03] MEDS: SODIUM CHLORIDE 0.9% 10 ML VIAL IV SCH (08:45)
[2018-06-03 11:00] VITALS: BP 108/77
[2018-06-03 16:00] VITALS: BP 104/64
== END 2018-06-03 18:30 | disposition home or self-care (01) | DRG 720 ==
LOC: EDH 22:03 → EDHIP 23:40 → 4AH 05-27 01:52 → 3CH 05-27 18:10
PROVIDERS: ADMIT Hospitalist; ATTEND Hospitalist
PROC: 0F9G30Z Drainage of Pancreas with Drainage Device, Percutaneous Approach (ICD-10-PCS; principal; 2018-05-29)
DX: A41.9 Sepsis, unspecified organism (principal); K85.90 Acute pancreatitis without necrosis or infection, unspecified; E44.1 Mild protein-calorie malnutrition; D73.4 Cyst of spleen; K86.3 Pseudocyst of pancreas; D64.9 Anemia, unspecified; R53.81 Other malaise; Z91.041 Radiographic dye allergy status; Z68.27 Body mass index [BMI] 27.0-27.9, adult; Z83.3 Family history of diabetes mellitus; Z82.49 Family history of ischemic heart disease and other diseases of the circulatory system
CPT/HCPCS: 36415; 49406; 71045; 74178; 75989; 76700; 80048; 80053; 81001; 82150; 82247; 82378; 82550; 82553; 83605; 83690; 83874; 84484; 85025; 85610; 85730; 86140; 87040; 87071; 87077; 87088; 87186; 87205; 87804; 93005; J1200; J2250; J2270; J2405; J2543; J3010; J7030; J7040; J7120; Q9963; Q9967

== ENCOUNTER → 2018-06-06 | Outpatient (CLI) | payer OTHER | END | disposition home or self-care (01) | LOC: RAH 09:56 | PROVIDERS: ATTEND Internal Medicine Gastroenterology | DX: K86.2 Cyst of pancreas (principal); K85.10 Biliary acute pancreatitis without necrosis or infection; I10 Essential (primary) hypertension | CPT/HCPCS: 76700 ==

== ENCOUNTER → 2018-06-07 | Outpatient (CLI) | payer OTHER | END | disposition home or self-care (01) | LOC: RAH 10:06 | PROVIDERS: ATTEND Internal Medicine Gastroenterology | DX: K86.2 Cyst of pancreas (principal); K85.10 Biliary acute pancreatitis without necrosis or infection; E11.9 Type 2 diabetes mellitus without complications; I10 Essential (primary) hypertension; Z90.49 Acquired absence of other specified parts of digestive tract | CPT/HCPCS: 74176 ==

== ENCOUNTER → 2019-01-16 | Outpatient (CLI) | payer OTHER ==
[~2019-01-16] MED LIST changes: +IOHEXOL 350 MG/ML 100ML INFUS..BTL IV ONE
== END | disposition home or self-care (01) ==
LOC: RAH 09:06
PROVIDERS: ATTEND Internal Medicine
DX: K42.9 Umbilical hernia without obstruction or gangrene (principal); M47.815 Spondylosis without myelopathy or radiculopathy, thoracolumbar region; K43.9 Ventral hernia without obstruction or gangrene; K63.89 Other specified diseases of intestine; K86.2 Cyst of pancreas; Z90.49 Acquired absence of other specified parts of digestive tract
CPT/HCPCS: 74178; Q9967

== ENCOUNTER 2019-02-07 08:08 | Day surgery (SDC) | payer OTHER ==
[~2019-02-07 08:08] MED LIST changes: -IOHEXOL 350 MG/ML 100ML INFUS..BTL IV ONE; +SODIUM CHLORIDE 0.9% 1000ML 1,000 ML IV ONE
[2019-02-07 08:45] VITALS: BP 113/69
[2019-02-07 10:51] VITALS: BP 108/55
[2019-02-07 10:55] VITALS: BP 106/60
[2019-02-07 11:00] VITALS: BP 105/64
[2019-02-07 11:08] VITALS: BP 114/75
== END 2019-02-07 11:25 | disposition home or self-care (01) ==
LOC: DAH 08:08 → ENDO 08:08
PROVIDERS: ATTEND Internal Medicine
DX: K86.89 Other specified diseases of pancreas (principal); K31.89 Other diseases of stomach and duodenum; R93.3 Abnormal findings on diagnostic imaging of other parts of digestive tract; Z68.32 Body mass index [BMI] 32.0-32.9, adult; I10 Essential (primary) hypertension; Z98.890 Other specified postprocedural states; Z79.899 Other long term (current) drug therapy; I85.10 Secondary esophageal varices without bleeding; K44.9 Diaphragmatic hernia without obstruction or gangrene
CPT/HCPCS: 43237; 81025; A4606; J7030; 43231

== ENCOUNTER 2019-03-31 15:28 | Emergency (ER) | payer OTHER ==
[~2019-03-31 15:28] MED LIST changes: -SODIUM CHLORIDE 0.9% 1000ML 1,000 ML IV ONE
[2019-03-31 15:40] LABS: APPEARANCE,URINE TURBID (CLEAR); BILIRUBIN,URINE SMALL (NEGATIVE); COLOR,URINE YELLOW (YELLOW); GLUCOSE, URINE (UA) NEGATIVE (NEGATIVE); KETONES,URINE 5 mg/dL (NEGATIVE); LEUKOCYTE ESTERASE ,URINE MODERATE (NEGATIVE); NITRATE,URINE POSITIVE (NEGATIVE); OCCULT BLOOD,URINE LARGE (NEGATIVE); PROTEIN,URINE 100 mg/dL (NEGATIVE)
[2019-03-31 15:45] LABS: HCG,QUAL RESULT POSITIVE (NEGATIVE)
[2019-03-31 15:54] LABS: BACTERIA,URINE Few /HPF (None Seen); RBC,URINE >100 /HPF (0-1); SQUAMOUS EPITHELIAL CELL,UR Few /HPF (0-2); WBC,URINE TNTC /HPF (0-1)
[2019-03-31] MEDS ORDERED: CEFTRIAXONE SODIUM 1 GM ONE (16:00)
[2019-03-31] MEDS ORDERED: LIDOCAINE HCL-MPF 1% 2ML VIAL ONE (16:00)
== END 2019-03-31 16:42 | disposition home or self-care (01) ==
LOC: EDH 15:28
DX: O23.11 Infections of bladder in pregnancy, first trimester (principal); Z3A.01 Less than 8 weeks gestation of pregnancy; Z90.49 Acquired absence of other specified parts of digestive tract; Z91.041 Radiographic dye allergy status
CPT/HCPCS: 81001; 81025; 96372; 99284; J0696; J3490